=== PATIENT | female | born 1980 | race Caucasian/White ===

== ENCOUNTER 2020-05-15 11:50 | Emergency (ER) | payer OTHER ==
[~2020-05-15] VITALS: Ht 172.7 cm; Wt 73.6 kg
[2020-05-15 11:57] VITALS: Ht 172.7 cm; Wt 73.6 kg
[2020-05-15] MEDS ORDERED: LAMICTAL25 MG PO (12:00)
[2020-05-15] MEDS ORDERED: BUPROPION HCL150 M1 PO (12:01)
[2020-05-15] MEDS ORDERED: PREVACID15 MG PO (12:01)
[2020-05-15] MEDS ORDERED: PROVERA10 MG PO (12:01)
[2020-05-15 12:55] LABS: CALC OSMOLALITY 269 mosm/kg (275-300); CALCIUM 9.2 mg/dL (8.5-10.1); CARBON DIOXIDE 29.1 mmol/L (21.0-32.0); CHLORIDE - SERUM 101 mmol/L (98-107); CREATININE - SERUM 0.8 mg/dL (0.6-1.3); GLUCOSE 100 mg/dL (74-106); POTASSIUM - SERUM 4.1 mmol/L (3.5-5.1); SODIUM 136 mmol/L (136-145); UREA NITROGEN 8 mg/dL (7-18); eGFR NON AFRICAN AMERICAN 85 mL/min (90-120)
[2020-05-15 12:58] LABS: HEMATOCRIT 44.1 % (36.0-48.0); HEMOGLOBIN 14.9 g/dL (12-16); LYMPHOCYTES 35.8 % (15-50); MCHC 33.8 g/dL (31.0-37.0); MCV 94.6 fL (80.0-100.0); MEAN PLATELET VOLUME 10.2 fL (7.4-10.4); PLATELET COUNT 224 10x3/uL (130-400); RBC 4.66 10x6/uL (4.00-5.40); RDW 13.1 % (11.5-14.5)
[2020-05-15 13:03] LABS: ALBUMIN 3.9 g/dL (3.4-5.0); ALKALINE PHOSPHATASE 82 U/L (30-120); ALT (SGPT) 47 U/L (10-68); AMYLASE - SERUM 40 U/L (25-115); LIPASE 50 U/L (73-393); PROTEIN - SERUM 7.8 g/dL (6.4-8.2)
[2020-05-15 13:04] LABS: TROPONIN-I < 0.017 ng/mL (0.000-0.060)
[2020-05-15 13:07] LABS: BILIRUBIN NEGATIVE (NEGATIVE); KETONE NEGATIVE (NEGATIVE); NITRITE NEGATIVE (NEGATIVE); UROBILINOGEN NORMAL mg/dL (< 2)
[2020-05-15 14:17] VITALS: BP 117/72
[2020-05-15 14:21] LABS: HCG SERUM NEGATIVE (NEGATIVE)
[2020-05-15] MEDS ORDERED: ZOFRAN ODT4 MG/UDTAB PO (16:31)
== END 2020-05-15 16:54 | disposition home or self-care (01) ==
LOC: D.ER 11:50
PROVIDERS: Family Medicine
DX: R10.84 Generalized abdominal pain (principal); K21.9 Gastro-esophageal reflux disease without esophagitis; R11.0 Nausea